=== PATIENT | male | born 1970 | race Caucasian/White ===

== ENCOUNTER 2018-10-19 14:45 | Emergency (ER) | payer OTHER ==
[~2018-10-19] VITALS: Ht 170.2 cm; Wt 77.1 kg
[2018-10-19] MEDS ORDERED: COLESTEROL (15:28)
[2018-10-19] MEDS ORDERED: HBP (15:28)
== END 2018-10-19 19:21 | disposition home or self-care (01) ==
LOC: ER 14:45
DX: K64.8 Other hemorrhoids (principal); K62.89 Other specified diseases of anus and rectum